=== PATIENT | female | born 1985 | race Caucasian/White ===

== ENCOUNTER 2019-05-04 23:32 | Emergency (ER) | payer BC ==
[2019-05-04] MEDS ORDERED: Ketorolac 60 MG/2 ML SDV IM ONE (23:48)
--- NOTE | 2019-05-04 23:48 | EDM.PDOC ---
<Sylwia Charles - Last Filed: 05/05/19 00:05> ED HPI GENERAL MEDICAL PROBLEM - General Chief Complaint: General Stated Complaint: INJURED RT KNEE Time Seen by Provider: 05/04/19 23:43 Source of Information: Reports: Patient History Limitations: Reports: No Limitations - History of Present Illness INITIAL COMMENTS - FREE TEXT/NARRATIVE: HISTORY AND PHYSICAL: History of present illness: Patient is a 33-year-old female presents to the ED with complaint of right knee injury. She states she tripped going down the stairs twisting her knee but not landing on it. She has not been able to bear weight since. She complaints of pain in the back of her knee, denies any proximal or distal pain and no distal numbness or tingling. Review of systems: As per history of present illness and below otherwise all systems reviewed and negative. Past medical history: As per history of present illness and as reviewed below otherwise noncontributory. Surgical history: As per history of present illness and as reviewed below otherwise noncontributory. Social history: No reported history of drug or alcohol abuse. Family history: As per history of present illness and as reviewed below otherwise noncontributory. Physical exam: General: Patient sitting comfortably in no acute distress and nontoxic appearing HEENT: Atraumatic, normocephalic, pupils reactive, negative for conjunctival pallor or scleral icterus, mucous membranes moist, throat clear, neck supple, nontender, trachea midline. No meningeal signs. Lungs: Clear to auscultation, breath sounds equal bilaterally, chest nontender. Heart: S1S2, regular, negative for clicks, rubs, or overt murmur. Abdomen: Soft, nondistended, nontender. Negative for masses or hepatosplenomegaly. Negative for costovertebral tenderness. No rigidity, rebound , guarding. Pelvis: Stable nontender. Genitourinary: Deferred. Rectal: Deferred. Extremities: No obvious swelling or deformity. Pain to palpation of proximal tib /fib and posterior knee. negative for cords or calf pain. Neurovascular unremarkable. Neuro: Awake, alert, oriented. Cranial nerves II through XII unremarkable. Cerebellum unremarkable. Motor and sensory unremarkable throughout. Exam nonfocal. Notes: Diagnostics: x-ray right knee Therapeutics: [] Prescriptions: Impression: [] Plan: [] Definitive disposition and diagnosis as appropriate pending reevaluation and review of above. right knee Pain Score (Numeric/FACES): 8 - Related Data Allergies Allergy/AdvReac Type Severity Reaction Status Date / Time No Known Allergies Allergy Verified 05/04/19 23:41 Home Meds: Home Meds EPINEPHrine [Epipen] 0.3 mg IM ASDIRECTED PRN #1 pen 06/20/14 [Rx] ED ROS GENERAL - Review of Systems Review Of Systems: ROS reveals no pertinent complaints other than HPI. ED EXAM, GENERAL - Physical Exam Exam: See Below (see dictation) Course - Vital Signs Last Recorded V/S: Last Vital Signs Temp 97.5 F 05/04/19 23:41 Pulse 86 05/04/19 23:41 Resp 18 05/04/19 23:41 BP 144/91 H 05/04/19 23:41 Pulse Ox 96 05/04/19 23:41 - Orders/Labs/Meds Orders: Active Orders 24 hr Category Date Time Status Acetaminophen/HYDROcodone [[place] 325-5 MG] Med 05/05/19 00:42 Once 1 tab PO ONETIME ONE Meds: Medications Discontinued Medications Generic Name Dose Route Start Last Admin Trade Name Freq PRN Reason Stop Dose Admin Ketorolac Tromethamine 60 mg 05/04/19 23:48 05/04/19 23:58 Toradol IM 05/04/19 23:49 60 mg ONETIME ONE Administration Departure - Departure Disposition: Home, Self-Care 01 Clinical Impression: Right knee injury - Discharge Information Referrals: Joseluis Dickerson MD [Primary Care Provider] - Forms: ED Department Discharge Additional Instructions: Medication as prescribed Return if symptoms persist or worsen Crutches immobilizer nonweightbearing Follow-up with orthopedist, ER referral for Saturday to reevaluate prior to your wedding on Saturday [facility] [address], [address] [place] [address] my orthopedic The following information is given to patients seen in the emergency department who are being discharged to home. This information is to outline your options for follow-up care. We provide all patients seen in our emergency department with a follow-up referral. The need for follow-up, as well as the timing and circumstances, are variable depending upon the specifics of your emergency department visit. If you don't have a primary care physician on staff, we will provide you with a referral. We always advise you to contact your personal physician following an emergency department visit to inform them of the circumstance of the visit and for follow-up with them and/or the need for any referrals to a consulting specialist. The emergency department will also refer you to a specialist when appropriate. This referral assures that you have the opportunity for follow-up care with a specialist. All of these measure are taken in an effort to provide you with optimal care, which includes your follow-up. Under all circumstances we always encourage you to contact your private physician who remains a resource for coordinating your care. When calling for follow-up care, please make the office aware that this follow-up is from your recent emergency room visit. If for any reason you are refused follow-up, please contact the [facility] emergency department at and asked to speak to the emergency department charge nurse. - My Orders Last 24 Hours: My Active Orders 05/05/19 00:42 Acetaminophen/HYDROcodone [[place] 325-5 MG] 1 tab PO ONETIME ONE - Assessment/Plan Last 24 Hours: My Active Orders 05/05/19 00:42 Acetaminophen/HYDROcodone [[place] 325-5 MG] 1 tab PO ONETIME ONE <Sim Weiss - Last Filed: 05/05/19 00:46> ED HPI GENERAL MEDICAL PROBLEM - History of Present Illness INITIAL COMMENTS - FREE TEXT/NARRATIVE: I've seen and examined the patient and agree with the above No fever nausea vomiting chills sweats no headache injury or loss of consciousness HEENT grossly within normal limits Chest clear CV regular Abdomen benign ExtremFor range of motion strength 5 out of 5 no edema Right lower extremit: And ankle and affected bruising over the anterior knee no open lesion very limited exam due to pain, entire limb neurovascularly intact Diagnostics 3 views right knee Therapeutics [place] 5 by mouth now tramadol Immobilizer crutches nonweightbearing [place] a referral for Saturday, Impression Right knee injury Definitive disposition and diagnosis as appropriate pending reevaluation and review of above ED ROS GENERAL - Review of Systems Review Of Systems: See Below ED EXAM, GENERAL - Physical Exam Exam: See Below Departure - Departure Time of Disposition: 00:45 Condition: Good
--- NOTE | 2019-05-05 00:31 | CR ---
INDICATION: Pain after fall COMPARISON: None available. TECHNIQUE: The right knee was examined with AP, lateral and sunrise views for a total of three views. FINDINGS: The lateral view is rotated, limiting sensitivity for a joint effusion. There is no sign of fracture or dislocation. The medial and lateral compartments are normal in height. There does appear to be a moderate suprapatellar joint effusion, but this is not a definite finding given the rotation. No soft tissue abnormality is seen. IMPRESSION: No sign of acute osseous injury. Possible moderate suprapatellar joint effusion. Rotation of the lateral view limits confidence in making this diagnosis. Dictated by Kishore Starks MD @ May 05 2019 12:29AM Signed by Dr. Kishore Starks @ May 05 2019 12:30AM
[2019-05-05] MEDS ORDERED: Acetaminophen/HYDROcodone 325-5 MG Tab PO ONE (00:42)
== END 2019-05-05 01:36 | disposition home or self-care (01) ==
LOC: MW.ED 23:32
DX: S80.01XA Contusion of right knee, initial encounter (principal); X50.1XXA Overexertion from prolonged static or awkward postures, initial encounter
CPT/HCPCS: 73562; 96372; 99283; A9270; J1885

== ENCOUNTER 2020-03-08 07:50 | Emergency (ER) | payer BC ==
--- NOTE | 2020-03-08 08:13 | EDM.PDOC ---
ED HPI GENERAL MEDICAL PROBLEM - General Chief Complaint: Drug or Alcohol Abuse Stated Complaint: DETOX Time Seen by Provider: 03/08/20 08:00 - History of Present Illness INITIAL COMMENTS - FREE TEXT/NARRATIVE: History of present illness: [Presents the ER with concerns over drug abuse and addiction. She apparently went to the primary care clinic and was turned away and told to go to the ER. She last used narcotics at this morning and is currently asymptomatic. She is wanting help with her problems and does not know where to turn. No thoughts of homicide or suicidality no psychosis no other complaints or medical concerns at this time.] Review of systems: As per history of present illness and below otherwise all systems reviewed and negative. Past medical history: As per history of present illness and as reviewed below otherwise noncontributory. Surgical history: As per history of present illness and as reviewed below otherwise noncontributory. Social history: No reported history of drug or alcohol abuse. Family history: As per history of present illness and as reviewed below otherwise noncontributory. Physical exam: HEENT: Atraumatic, normocephalic, pupils reactive, negative for conjunctival pallor or scleral icterus, mucous membranes moist, throat clear, neck supple, nontender, trachea midline. Lungs: Clear to auscultation, breath sounds equal bilaterally, chest nontender. Heart: S1S2, regular, negative for clicks, rubs, or JVD. Abdomen: Soft, nondistended, nontender. Negative for masses or hepatosplenomegaly. Negative for costovertebral tenderness. Pelvis: Stable nontender. Genitourinary: Deferred. Rectal: Deferred. Extremities: Atraumatic, negative for cords or calf pain. Neurovascular unremarkable. Neuro: Awake, alert, oriented. Cranial nerves II through XII unremarkable. Cerebellum unremarkable. Motor and sensory unremarkable throughout. Exam nonfocal. Diagnostics: [] Therapeutics: [] Impression: Substance abuse [] Plan: Patient will be given resources where she can seek help for substance abuse. [] Definitive disposition and diagnosis as appropriate pending reevaluation and review of above. - Related Data Allergies Allergy/AdvReac Type Severity Reaction Status Date / Time No Known Allergies Allergy Verified 03/08/20 07:57 Home Meds: Home Meds EPINEPHrine [Epipen] 0.3 mg IM ASDIRECTED PRN #1 pen 06/20/14 [Rx] Past Medical History HEENT History: Reports: None Cardiovascular History: Reports: Hypertension Respiratory History: Reports: None Gastrointestinal History: Reports: None Genitourinary History: Reports: None MAINTENANCE REPAIRER History: Reports: None Neurological History: Reports: None Psychiatric History: Reports: None Endocrine/Metabolic History: Reports: None Hematologic History: Reports: None Oncologic (Cancer) History: Reports: None Dermatologic History: Reports: None - Infectious Disease History Infectious Disease History: Reports: Chicken Pox - Past Surgical History Female Surgical History: Reports: Section Social & Family History - Family History Family Medical History: Noncontributory - Tobacco Use Smoking Status *Q: Current Every Day Smoker Years of Tobacco use: 18 Packs/Tins Daily: 2 - Recreational Drug Use Recreational Drug Use: Yes Drug Use in Last 12 Months: Yes Recreational Drug Type: Reports: Fentanyl, Oxycodone ED ROS GENERAL - Review of Systems Review Of Systems: See Below ED EXAM, GENERAL - Physical Exam Exam: See Below Course - Vital Signs Text/Narrative:: Work was able to come and see the patient prior to departure and set her up with a couple resources to help her with her opioid addiction Last Recorded V/S: Last Vital Signs Temp 36.2 C 03/08/20 07:57 Pulse 86 03/08/20 07:57 Resp 18 03/08/20 07:57 BP 128/90 03/08/20 07:57 Pulse Ox 99 03/08/20 07:57 Departure - Departure Time of Disposition: 08:19 Disposition: Home, Self-Care 01 Condition: Good Clinical Impression: Drug abuse - Discharge Information *PRESCRIPTION DRUG MONITORING PROGRAM REVIEWED*: Not Applicable *COPY OF PRESCRIPTION DRUG MONITORING REPORT IN PATIENT KRANTHI: Not Applicable Instructions: Substance Use Disorder and Mental Illness Referrals: Joseluis Dickerson MD [Primary Care Provider] - Forms: ED Department Discharge Additional Instructions: The following information is given to patients seen in the emergency department who are being discharged to home. This information is to outline your options for follow-up care. We provide all patients seen in our emergency department with a follow-up referral. The need for follow-up, as well as the timing and circumstances, are variable depending upon the specifics of your emergency department visit. If you don't have a primary care physician on staff, we will provide you with a referral. We always advise you to contact your personal physician following an emergency department visit to inform them of the circumstance of the visit and for follow-up with them and/or the need for any referrals to a consulting specialist. The emergency department will also refer you to a specialist when appropriate. This referral assures that you have the opportunity for follow-up care with a specialist. All of these measure are taken in an effort to provide you with optimal care, which includes your follow-up. Under all circumstances we always encourage you to contact your private physician who remains a resource for coordinating your care. When calling for follow-up care, please make the office aware that this follow-up is from your recent emergency room visit. If for any reason you are refused follow-up, please contact the [facility] Emergency Department at and asked to speak to the emergency department charge nurse. Sepsis Event Note - Evaluation Sepsis Screening Result: No Definite Risk - Focused Exam Vital Signs: Vital Signs Temp Pulse Resp BP Pulse Ox 03/08/20 07:57 36.2 C 86 18 128/90 99 Date Exam was Performed: 03/08/20 Time Exam was Performed: 08:19
== END 2020-03-08 08:30 | disposition home or self-care (01) ==
LOC: MW.ED 07:50
DX: F19.10 Other psychoactive substance abuse, uncomplicated (principal); I10 Essential (primary) hypertension; F17.210 Nicotine dependence, cigarettes, uncomplicated
CPT/HCPCS: 99282